=== PATIENT | male | born 1950 | race Caucasian/White ===

== ENCOUNTER → 2024-11-22 12:53 | Outpatient (REF) | payer MEDICARE, OTHER, SELFPAY ==
[2024-11-22 13:32] LABS: Hematocrit 43.1 % (39.0-52.0); Hemoglobin 14.1 g/dL (13.0-18.0); Mean Corp Hgb Conc. 32.7 g/dL (33.0-37.0); Mean Corpuscular Volume 90.7 fL (80.0-94.0); Nucleated Red Blood Cells % 0 % (-); Platelet Count 200 10^3/uL (130-400); Red Cell Dist. Width 14.0 % (11.5-14.5)
[2024-11-22 13:48] LABS: INR 1.08; PT 14.3 Sec (11.4-14.6)
[2024-11-22 13:49] LABS: ALT (SGPT) 48 U/L (0-50); AST (SGOT) 22 U/L (17-59); Albumin 4.2 g/dl (3.5-5.0); Alkaline Phosphatase 112 U/L (38-126); Blood Urea Nitrogen 20 mg/dl (9-20); Calcium 9.4 mg/dl (8.4-10.2); Carbon Dioxide 26 mmol/L (22-30); Chloride 106 mmol/L (98-107); Glucose 100 mg/dl (70-99); Magnesium 2.1 mg/dl (1.6-2.3); Potassium 4.4 mmol/L (3.5-5.1); Sodium 138 mmol/L (135-145); Total Protein 6.7 g/dl (6.3-8.2); eGFR > 60.00
== END ==
LOC: SDSPAT 12:53
PROVIDERS: ATTENDING PHYSICIAN Internal Medicine Cardiovascular Disease; FAMILY PHYSICIAN Internal Medicine; OTHER PHYSICIAN Internal Medicine Cardiovascular Disease
DX: I48.0 Paroxysmal atrial fibrillation (principal)
CPT/HCPCS: 36415; 75572; 80053; 83735; 85025; 85610; 86850; 86900; 86901; 93005; Q9967

== ENCOUNTER 2024-12-14 06:03 | Day surgery (SDC) | payer MEDICARE, OTHER, SELFPAY ==
[2024-11-22 13:20] VITALS: BMI 40.1
[2024-12-14] VITALS (12 sets, daily range): BP systolic 114–146; BP diastolic 65–103
[2024-12-14] MEDS: NSS 500 IV (07:18)
[2024-12-14 08:41] LABS: ACT-LR - POC 345 Seconds (116-155)
[2024-12-14 08:48] LABS: Glucose - Point of Care 99 mg/dl (70-99)
[2024-12-14 08:59] LABS: Glucose - Point of Care 101 mg/dl (70-99)
--- NOTE | 2024-12-14 09:07 | ITS.CL.ABL ---
[employer] - Ablation
Ablation
Procedure Report:
ELECTROPHYSIOLOGY ABLATION STUDY
DATE:: December 14, 2024�����������������������������REFERRING: Dr. Cesar Rick
INDICATION: Paroxysmal supraventricular tachycardia in the form of atrial fibrillation.��Tachycardia induced cardiomyopathy
HISTORY: See H and P.��As above
ANTIARRHYTHMIC DRUG: Atenolol
PRE-PROCEDURE BRENT: No atrial thrombus
PRESENTING RHYTHM: Sinus rhythm
'TIME-OUT':��called and confirmed.
SEDATION/ANESTHESIA:��provided via the anesthesia department using general anesthesia (LMA).
INTRAVENOUS/ARTERIAL ACCESS:
Right femoral venous -8Fr
Left femoral venous - 8 Fr, 6 Fr
[id number] suture bilaterally
Ultrasound guidance for bilateral femoral vein access was utilized by me to obtain access with demonstration of normal anatomy
CHADS-VASC Score:
HAS-Bled Score
PROCEDURE:
1.��A decapolar CS catheter was placed within the CS for mapping and pacing.��This was also used as the reference catheter for the 3-D map.
2. The intracardiac ultrasound catheter was positioned in the RA to identify the FO for targeting of transseptal puncture, assist��in identification of the pulmonary vein ostia, monitoring pre and post ablation pulmonary vein flow velocities,
monitoring for 'bubble' formation during RF application as a sign of thermal injury,��and to monitor for pericardial effusion during mapping and ablation procedure.���Left atrial size, LV ejection fraction, and pulmonary vein flows were monitored
pre and post ablation procedure. The other valves were inspected and found to be free of significant regurgitation or stenosis.
3.��Half of the calculated heparin bolus was administered prior to the first transeptal puncture.��Transseptal puncture was performed to diagnose RA and LA pressure so that safety of LA mapping and ablation could be further assessed, and to access
the left atrium and pulmonary veins for mapping and ablation.��This entailed advancing an 16.8 Fr SL-1 sheath with dilator into the superior vena cava and withdrawing both (monitoring intracardiac ultrasound, fluoroscopy and tip pressure) with the
tip oriented toward the atrial septum.��The fossa ovalis was engaged (indicated by sudden displacement of the sheath tip as well as tenting of the fossa seen on intracardiac ultrasound).��Left atrial access required a pass with the [place]
needle extended.��Left atrial catheter position was confirmed by pressure monitoring (RA mean pressure 6 mm Hg and LA mean presure 11 mm Hg which was answered with 750 cc of hydration and final left atrial pressure of 16 mmHg), LA saturation
(99%),��as well as fluoroscopy.��The sheath was advanced over the dilator and positioned in the left atrium.��The remainder of the calculated heparin bolus was administered and heparin was
infused to maintain ACT at 300 -350 seconds throughout the case.
4.��RA pacing was performed via the proximal decapolar poles and LA pacing was performed via the distal decapolr poles.
5. A quadrapolar catheter was first positioned at the His position for His Bundle recording which was tagged via the 3-D Navex sytem, and then passed to the RVA for RV pacing and recording.
6. The Penta spline and grid were placed in each of the LIPV, LSPV, RSPV and the RIPV.��
7.��Next, a 3-D map was created using Navex.���A 3-D reconstructed CT image was compared to the 3-D Navex map to assist in anatomic interpretation, mapping and ablation.��The CT image and the NavX image were fused.
8. 52 lesions were given to the pulmonary veins and the roof posterior wall floor of the left atrium. All of in basket pose to the pulmonary veins and flower post through the posterior wall and floor rendering entrance and exit block in all 4
pulmonary veins plus the posterior wall. Follow-up EP study post procedure did not did not demonstrate any other nonpulmonary triggers for atrial fibrillation.
9. Normal sinus node AV node function noted.
TOTAL FLOURO TIME: 12.1 minutes 143 mGy
TOTAL RF DURATION: 0 minutes
REVERSAL OF HEPARIN: 35 mg of protamine, slow IV administration
COMPLICATIONS:
None
Intracardiac US shows no pericardial effusion post ablation.
SUMMARY:��
Complex left atrial mapping and ablation.
Isolation of all 4 pulmonary veins and the posterior wall as above.
RECOMMENDATIONS:
1. Ambulate in 4 hours
2. Resume anticoagulation
3.� Out of bed 4 hours and consider same-day discharge
4.��Continue atenolol for the patient's cardiomyopathy
Copy to: Dr. Cesar Rick
--- NOTE | 2024-12-14 14:30 | W.PN.UPDATE ---
Update Note
Progress Note Update
Pt seen post PFA. Bilat groin sites without ht/bleeding, OOB ambulating. Post EKG NSR w/LAD/LVH, no acute changes. Resume eliquis tonight at usual time. Followup with Dr. Rick as scheduled. Home today if groin sites/tele remain stable.
== END 2024-12-14 13:57 | disposition home or self-care (01) ==
LOC: CATH 06:03
PROVIDERS: ATTENDING PHYSICIAN Internal Medicine Cardiovascular Disease; FAMILY PHYSICIAN Internal Medicine; OTHER PHYSICIAN Internal Medicine Cardiovascular Disease
DX: I48.0 Paroxysmal atrial fibrillation (principal); I42.8 Other cardiomyopathies; I47.10 Supraventricular tachycardia, unspecified; I49.3 Ventricular premature depolarization
CPT/HCPCS: 82962; 85347; 86900; 86901; 93005; 93656; 93657; C1730; C1732; C1733; C1759; C1766; C1769; C1892; C1894